=== PATIENT | female | born 1995 | race African-American/Black ===

== ENCOUNTER 2016-10-14 23:51 | Inpatient (IN) | payer MEDICAID ==
[~2016-10-14] VITALS: Ht 165.1 cm; Wt 59.4 kg
[~2016-10-14 23:51] MED LIST: FERROUS SULFAT325 MG PO; HYDROCODON-ACE1 EAC7 PO; IBUPROFEN600 MG PO; METHYLERGONOVI0.2 MG PO; VIBRAMYCIN 100100 MG PO
[2016-10-15] MEDS ORDERED: FERROUS SULFAT325 MG PO (00:12)
[2016-10-15 00:13] VITALS: BP 158/88; BMI 21.8
[2016-10-15] MEDS ORDERED: PRENATAL COMPLE1 TAB PO (00:13)
[2016-10-15 00:40] LABS: APPEARANCE CLEAR (CLEAR); BILIRUBIN NEGATIVE (NEGATIVE); COLOR YELLOW (YELLOW); GLUCOSE NEGATIVE (NEGATIVE); KETONE NEGATIVE (NEGATIVE); LEUKOCYTE ESTERASE NEGATIVE (NEGATIVE); NITRITE NEGATIVE (NEGATIVE); PROTEIN NEGATIVE (NEGATIVE); UROBILINOGEN NORMAL (NORMAL)
[2016-10-15 00:41] LABS: BASOPHILS 0.1 % (0.0-2.0); EOSINOPHILS 0.6 % (0-7); HEMATOCRIT 31.5 % (36.0-48.0); HEMOGLOBIN 10.5 g/dL (12-16); IMMATURE GRANULOCYTES 0.3 % (0-5); MCH 30.7 pg (26.0-34.0); MCHC 33.3 g/dL (31.0-37.0); MCV 92.1 fL (80.0-100.0); MEAN PLATELET VOLUME 11.6 fL (7.4-10.4); MONOCYTES 7.2 % (2-11); NEUTROPHILS 73.8 % (40-80); PLATELET COUNT 149 10x3/uL (130-400); RBC 3.42 10x6/uL (4.00-5.40); RDW 13.1 % (11.5-14.5); WBC 8.8 10x3/uL (4.8-10.8)
[2016-10-15 00:43] LABS: UDS - AMPHET NEGATIVE QUAL (NEGATIVE); UDS - BARB NEGATIVE QUAL (NEGATIVE); UDS - BENZO NEGATIVE QUAL (NEGATIVE); UDS - COCAINE NEGATIVE QUAL (NEGATIVE); UDS - METH NEGATIVE QUAL (NEGATIVE); UDS - OPIATE NEGATIVE QUAL (NEGATIVE); UDS - PCP NEGATIVE QUAL (NEGATIVE); UDS - THC NEGATIVE QUAL (NEGATIVE)
[2016-10-15 05:01] VITALS: BP 141/75
--- NOTE | 2016-10-15 05:28 | NUR ---
TRANSFER OF CARE FROM [facility] TO [facility]. SEE [facility] FOR FULL CHARTING DETAILS ON INTRAPARTUM CARE.
--- NOTE | 2016-10-15 05:40 | NUR ---
pt. c/o abd. cramping that she rates as a 4 of 10 on pain scale. Med given as ordered. pt. sitting in bed looking at phone.
[2016-10-15 07:15] VITALS: BP 126/74
--- NOTE | 2016-10-15 07:15 | NUR ---
THIS RN TO BEDSIDE FOR SHIFT ASSESSMENT. PT CURRENTLY SITTING ON SIDE OF BED GETTING READY TO BREASTFEED. PT CURRENTLY DENIES PAIN AT PRESENT. PT TO LYING FLAT ON BED. BREATH SOUNDS CL\=, BOWEL SOUNDS PRESENT X 4. ABD SOFT,NON DISTENDED. FUNDUS FIRM,U/1, PT REPORTS LOCHIA TO BE EQUIVALENT TO A REG PERIOD. PEDAL PULSES PRESENT W/ BILATERAL 1+ PITTING EDEMA NOTED TO LE'S. BREASTFAST TRAY SERVED AT THIS TIME. PT DECLINES OFFER TO BRING HER ANY THING ELSE TO EAT OR DRINK AT THIS TIME. PT DENEIS NEEDING ASSISTANCE W/GETTING LATCHED AT THIS TIME. PT'S BED LOW, HOB ELEVATED FOR COMFORT. SIDE RAILS X 2. CALL LIGHT AT PT'S SIDE. PT ASKED TO RING CALL LIGHT IF SHE NEEDS ASSISTANCE W/NURSING.PT'S MOTHER IN ROOM.
--- NOTE | 2016-10-15 08:22 | NUR ---
ROUNDS MADE. PT LYING TO RT SIDE AWAKE IN BED W/SIG OTHER IN BED W/HER. PAIN AND NEEDS ASSESSED. PT DENIES NEEDS. REPORTS PERINEAL THROBBING THAT SHE RATES 3/10. MOTRIN OFFERED. PT ACCEPTS.
--- NOTE | 2016-10-15 09:25 | NUR ---
ROUNDS MADE. PT LYING IN BED AWAKE. PAIN REASSESSED. PT REPORTS MOTRIN DID NOT HELP HER PAIN. PERCOCET OFFERED. PT DECLINES AT THIS TIME. STATING, "I'M GOING TO WAIT UNTIL MY BABY GETS BACK IN THE ROOM. I CALLLED ABOUT 30 MINS AGO TO ASK FOR HER." THIS RN TO N TO SEE WHY HAS NOT BEEN BROUGHT TO ROOM. Stanley REYES LPN APOLOGIZES AND STATES SHE FORGOT. DR BRYANT CURRENTLY IN NBN FOR ASSESSMENTS. THIS RN RETURNS TO PT'S ROOM TO EXPLAIN WHY HASN'T BEEN RETURNED TO ROOM. PT VERBALIZES UNDERSTANDING. PT REASSURED WILL BE BROUGHT TO ROOM SIMON. PT IS AGREEABLE. DENIES NEEDS AT THIS TIME. BREAKFAST TRAY REMOVED FROM ROOM. FAMILY IN ROOM AT THIS TIME.
--- NOTE | 2016-10-15 10:00 | NUR ---
INFANT TRANSPORTED VIA CRIB TO PT'S ROOM. MOTHER/BABY ID PER PROTOCOL. INFANT PLACED IN PT'S ARMS. PT STILL DECLINES PERCOCET AT THIS TIME.
--- NOTE | 2016-10-15 11:15 | NUR ---
ROUNDS MADE. PT SITTING UP IN BED W/ UP IN ARMS. PT REPORTS SHE HAS BEEN UNABLE TO GET AWAKE FOR NURSING. PT ASSISTED W/WAKING AND GETTING LATCHED TO LEFT BREAST. LATCHED WELL AND NURSING. PT DENIES FURTHER NEEDS AT THIS TIME.
--- NOTE | 2016-10-15 12:20 | NUR ---
TO BEDSIDE FOR V/S. PT CURRENTLY SITTING UP IN BED W/ UP IN ARMS. REPORTS DID NOT NURSE AT 1115. PAIN AND NEEDS ASSESSED. PT REPORTS PERINEAL PAIN HAS INCREASED, BUT STILL DECLINES OFFERS MADE TO BRING HER PERCOCET FOR HER PAIN. ICE PACK OFFERED. PT DECLINES. EPIFOAM AND DERMABLAST PROVIDED W/TEACHING. PT DENIES NEEDS. FRESH ICE WATER IN [facility] MUG SERVED. FAMILY TO ROOM AT THIS TIME.
[2016-10-15 12:21] VITALS: BP 115/58
[2016-10-15 12:43] LABS: BASOPHILS 0.1 % (0.0-2.0); EOSINOPHILS 0.4 % (0-7); HEMOGLOBIN 8.8 g/dL (12-16); IMMATURE GRANULOCYTES 0.1 % (0-5); LYMPHOCYTES 17.2 % (15-50); MCHC 33.8 g/dL (31.0-37.0); MCV 91.5 fL (80.0-100.0); MEAN PLATELET VOLUME 10.9 fL (7.4-10.4); NEUTROPHILS 77.2 % (40-80); PLATELET COUNT 122 10x3/uL (130-400); RBC 2.84 10x6/uL (4.00-5.40); RDW 12.7 % (11.5-14.5); WBC 10.1 10x3/uL (4.8-10.8)
--- NOTE | 2016-10-15 13:36 | NUR ---
ERASMO SOUZA. PT SITTING UP IN BED W/INFANT UP IN ARMS. BLENDING MACHINE FEEDER AT BEDSIDE TAKING PICTURES. PT DENIES NEEDS. STILL REPORTS PERINEAL PAIN,B UT DECLINES ADDITIONAL PAIN INTERVENTIONS AT THIS TIME.
[2016-10-15 14:08] VITALS: Ht 165.1 cm; Wt 59.4 kg
--- NOTE | 2016-10-15 14:35 | NUR ---
ROUNDS MADE. PT SITTING UP IN BED. DENIES NEEDING ANYTHING TO EAT OR DRINK AT THIS TIME. REPORTS PERINEAL PAIN 01/23. REQUEST PERCOCET NOW. PERCOCET 5/325MG ONE TAB GIVEN. SEE EMAR.
--- NOTE | 2016-10-15 14:48 | NUR ---
PT UP TO BR. REQUEST A CLEAN GOWN. GOWN PROVIDED.
--- NOTE | 2016-10-15 15:13 | NUR ---
ROUNDS MADE FOR PAIN REASSESSMENT. PT CURRENTLY RESTING QUIETLY TO RT SIDE. RESP EVEN. HOB ELEVATED TO 70 DEGREES. PAIN REASSESSED USING FACE SCALE 0/10 PT LEFT UNDISTURBED AT THIS TIME. SIG OTHER AT BEDSIDE.
--- NOTE | 2016-10-15 16:33 | NUR ---
ROUNDS MADE. PT SITTING UP IN BED. RATES PAIN 2/10. DENIES NEEDING FURTHER PAIN INTERVENTIONS AT THIS TIME.
--- NOTE | 2016-10-15 17:30 | NUR ---
ROUNDS MADE. PT SITTING UP IN BED W/INFANT UP IN ARMS. REPORTS PAIN 2/10. DENIES NEEDING FURTHER PAIN INTERVENTIONS AT THIS TIME. [facility] MUG FILLED W/ICE WATER.
--- NOTE | 2016-10-15 19:02 | NUR ---
PT REQUESTS & RECEIVES PERCOCET 5/325 MG X1 TAB FOR PAIN RATED 5/10 IN PERINEUM. PT DENIES FURTHER NEEDS AT THIS TIME. FOB CHANGING DIAPER ON .
[2016-10-15 19:06] VITALS: BP 135/89
--- NOTE | 2016-10-15 19:06 | NUR ---
RCVD PT FROM Kate OROPEZA RN. PT SITTING UP IN BED AT THIS TIME. FOB AT BEDSIDE. PT RATES PAIN IN PERINEAL AREA 5/10 AND DESCRIBES THIS PRESSURE. BREATH SOUNDS CLEAR & UNLABORED X2. BOWEL SOUNDS ACTIVE. PIV NOTED IN R FOREARM, SL AT THIS TIME. SMALL LOCHIA RUBRA NOTED ON PERIPAD. FUNDUS FIRM, U/2, ML. PT DENIES NEEDS AT THIS TIME. BED LOW, WHEELS LOCKED, CL IN REACH. SIDE RAILS UP X2.
--- NOTE | 2016-10-15 19:37 | NUR ---
PT CURRENTLY RATES PAIN 2/10 AND TOLERABLE. PT SITTING UP EATING AT THIS TIME. DENIES FURTHER NEEDS. WILL CONTINUE POC.
--- NOTE | 2016-10-15 20:56 | NUR ---
MOM GIVEN PER ORDERS. SEE EMAR. PT SUSAN WELL. PT CURRENTLY LYING ON BACK IN BED. HOB 45 DEGREES, HOLDING INFANT AT THIS TIME. FOB RESTING ON BEDSIDE COUCH. PT DENIES PAIN OR NEEDS AT THIS TIME.
--- NOTE | 2016-10-15 21:45 | NUR ---
ROUNDS MADE. UPON ENTERING ROOM PT NOTED TO BE SLEEPING WITH IN ARMS. PT AWOKEN AT THIS TIME. INFANT PLACED IN OPEN CRIB. PT DENIES PAIN OR NEEDS. FOB SLEEPING ON BEDSIDE COUCH. TRANSPORTED TO N PER PT REQUEST VIA OPEN CRIB. BED LOW, WHEELS LOCKED, CL IN REACH, SIDE RAILS UP X2.
--- NOTE | 2016-10-15 22:20 | NUR ---
ROUNDS MADE. PT RESTING ON LEFT SIDE, EYES CLOSED. RESP EVEN & UNLABORED. FOB SLEEPING ON BEDSIDE COUCH. PT LEFT UNDISTURBED AT THIS TIME. WILL CONTINUE POC.
--- NOTE | 2016-10-15 23:37 | NUR ---
PT SITTING UP ATTEMPTING TO BF AT THIS TIME. RAGHU SKINNER RN IN ROOM ASSISTING. FOB AT BEDSIDE. PT RATES PAIN 5/10 IN PERINEUM AT THIS TIME AND DESCRIBES THIS PRESSURE. PERCOCET 5/325MG X1 TAB GIVEN PER PT REQUEST. PERIPADS & ICE WATER ALSO PROVIDED PER REQUEST. PT DENIES FURTHER NEEDS AT THIS TIME. WILL CONTINUE TO MONITOR.
--- NOTE | 2016-10-16 00:22 | NUR ---
ROUNDS MADE. PAIN REASSESSMENT COMPLETE AT THIS TIME. PT LYING ON RT SIDE ON CELL PHONE AT THIS TIME. INFANT SLEEPING IN OPEN CRIB, FOB AT BEDSIDE. PT RATES PAIN. 3/10 IN PERINEUM CURRENTLY, BUT SAYS IT IS TOLERABLE. PT DENIES FURTHER NEEDS AT THIS TIME.
--- NOTE | 2016-10-16 02:07 | NUR ---
ROUNDS MADE. PT LYING ON BACK, HOB 30 DEGREES. C/O PAIN 11/25. REQUESTS & RECEIVES MOTRIN 600MG X1 TAB. PT DENIES FURTHER NEEDS AT THIS TIME. BED LOW, WHEELS LOCKED, CL IN REACH, SIDE RAILS UP X2.
--- NOTE | 2016-10-16 02:42 | NUR ---
PAIN REASSESSMENT COMPLETED. PT RATES PAIN 1/10 CURRENTLY & TOLERABLE. FOB @ BEDSIDE. NBN RN AT BEDSIDE TO ASSIST PT WITH LATCHING. PT DENIES FURTHER NEEDS.
--- NOTE | 2016-10-16 04:12 | NUR ---
ROUNDS MADE. PT LYING ON RT SIDE. HOB 30 DEGREES. PT DENIES PAIN OR NEEDS AT THIS TIME. FOB AT BEDSIDE. WILL CONTINUE TO MONITOR.
--- NOTE | 2016-10-16 06:03 | NUR ---
ROUNDS MADE. PT LYING ON BACK BF INFANT AT THIS TIME. FOB SLEEPING ON BEDSIDE COUCH. PT DENIES PAIN OR NEEDS AT THIS TIME.
--- NOTE | 2016-10-16 07:20 | NUR ---
THIS RN TO ROOM FOR PT CHECK. PT INFANT, RATES PAIN 3/10 AND REQEUSTS IBUPROFEN. PT INSTRUCTED IT IS NOT YET TIME BUT THIS RN WILL BRING IT WHEN IT IS AVAILABLE PER ORDERED PRN SCHEDULE. PT VERBALIZES UNDERSTANDING. MEDICAL RECORDS TO ROOM AT THIS TIME FOR PATERNITY SIGNATURE.
--- NOTE | 2016-10-16 08:08 | NUR ---
PT ADMIN PRN IBUPROFEN ORDERED, SEE EMAR FOR DOC. DISCUSSED POC AND TO REPORT HEAVY LOCHIA OR CLOTS THAT SATURATE A PERIPAD IN LESS THAN AN HOUR. PT DENIES HEAVY BLEEDING THROUGHOUT THE NIGHT OR ANY QUESTIONS OR CONCERNS. PT CONTINUES . PT INSTRUCTED TO CALL SLIPCOVER CUTTER LIGHT WHEN FINISHED SO THIS RN CAN COMPLETE SHIFT ASSESSMENT. CL IN REACH, SRUx2.
[2016-10-16 08:56] VITALS: BP 131/76
--- NOTE | 2016-10-16 08:56 | NUR ---
PT CALLS OUT APPLIED COMPUTER SCIENCE PROFESSOR LIGHT TO NOTIFY THIS RN SHE HAS FINISHED . SHIFT ASSESSMENT COMPLETED, VSS, SEE FLOWSHEET FOR DOC. POC REVIEWED WITH PT, PT DENIES NEEDS AT THIS TIME. STATES SHE WANTS TO NAP. LIGHTS IN ROOM DIMMED. SRUX2, CL IN REACH.
--- NOTE | 2016-10-16 10:23 | NUR ---
RESTING QUIETLY ON RIGHT SIDE. SALINE LOCK DC'D FROM RIGHT FOREARM. CATHETER INTACT. 3/10 PERINEAL PAIN BUT DECLINES DERMOPLAST SPRAY AT THIS TIME SAYS SHE WILL GET UP AND US IT NEEDED. NO OTHER REQUESTS. SIDE RAILS UP X2, CALL LIGHT IN REACH, IN NURSERY. LIGHTS OFF.
--- NOTE | 2016-10-16 12:01 | NUR ---
PT SITTING UP IN BED HOLDING ON CHEST. PT DENIES PAIN OR ANY NEEDS AT THIS TIME. PT INSTRUCTED TO CALL FOR ANY NEEDS. SRUx2, CL IN REACH.
--- NOTE | 2016-10-16 13:00 | NUR ---
REPORT RECEIVED FROM Rashaun LEWIS RN.
--- NOTE | 2016-10-16 13:10 | NUR ---
NBN NURSE, Leonidas WILSON RN TO ROOM TO CHECK ON INFANT. REPORTS PT SITTING UP IN BED W/INFANT TO BREAST. NO REPORTS OF C/O OR NEEDS FROM PT AT THIS TIME.
--- NOTE | 2016-10-16 13:24 | NUR ---
DR WEI ON UNIT AND TO PT'S ROOM FOR DISCHARGE.
--- NOTE | 2016-10-16 13:35 | NUR ---
THIS RN TO BEDSIDE FOR DISCHARGE TEACHING. INFO SHEETS ON PP VAG DELIVERY,EPIS CARE,,CARSEAT SAFETY,HOW TO TAKE MEDICATIONS PROVIDED,COMMUNITY RESOURCES,PRESCRIPTIONS FOR MOTRIN AND PERCOCET, PLUS ADDITIONAL HANDOUTS GIVEN. QUESTIONS ANSWERED. PAIN AND NEEDS OF PT ASSESSED BEFORE DISCHARGE COMPLETED. PT REPORTS PERINEAL PAIN THAT PT REPORTS 3/10. REQUEST MOTRIN.
[2016-10-16] MEDS ORDERED: PERCOCET 5-3251 TAB PO (13:36)
[2016-10-16] MEDS ORDERED: IBUPROFEN600 MG PO (13:36)
--- NOTE | 2016-10-16 13:47 | NUR ---
MOTRIN 600MGPO GIVEN. PT QUESTIONED IF SHE WANTS TO RECEIVE THE TDAP. PT STATES SHE WOULD LIKE TO RECEIVE IT. PLANS TO ADMIN BEFORE DISCHARGE.
--- NOTE | 2016-10-16 14:45 | NUR ---
TDAP ADMINISTERED TO LEFT DELTOID. PT TOLERATED WELL.
--- NOTE | 2016-10-16 14:59 | NUR ---
THIS RN TO BEDSIDE TO FINALIZE DISCHARGE.D/C PT MED-REC,PT INSTRUCTIONS,TAKING YOUR MEDICATIONS,AND DISCHARGE PAPERS SIGNED. ALL COPIES AND HANDOUTS PROVIDED. PT DENIES QUESTIONS AT THIS TIME. PT INFORMED THAT HER DISCHARGE IS COMPLETE. PT ASKED TO RING CALL LIGHT ONCE IS DISCHARGED AND PT HAS DRESSED HER AND AND IS PLACED IN INFANT CARSEAT AND THIS RN WILL RETURN TO ROOM TO TRANSPORT PT OUT TO CAR. PT IS AGREEBLE.
--- NOTE | 2016-10-16 16:00 | NUR ---
PT DISCHARGED HOME. TRANSPORTED VIA W/C PER THIS RN TO CAR TO BE DRIVEN HOME BY SPOUSE. IN CARSEAT IN APPARENTLY CORRECT MANNER.
[2016-10-19 07:24] LABS: RAPID PLASMA REAGIN Non Reactive (Non Reactive)
== END 2016-10-16 16:00 | disposition home or self-care (01) | DRG 775 ==
LOC: D.LD 23:51
PROVIDERS: ADMIT Specialist
PROC: 0W8NXZZ Division of Female Perineum, External Approach (ICD-10-PCS; principal; 2016-10-15)
PROC: 10E0XZZ Delivery of Products of Conception, External Approach (ICD-10-PCS; 2016-10-15)
DX: O80 Encounter for full-term uncomplicated delivery (principal); Z3A.37 37 weeks gestation of pregnancy; Z37.0 Single live birth; Z23 Encounter for immunization